=== PATIENT | male | born 1950 | race Caucasian/White ===

== ENCOUNTER → 2018-06-28 09:36 | Outpatient (CLI) | payer MEDICARE, SELFPAY ==
[2018-06-28 12:12] LABS: Absolute Lymphocyte Count 0.98 X10^3/ul (0.83-4.51); Absolute Neutrophil Count 6.4 X10^3/uL (2.0-7.7); Basophil# 0.04 X10^3/uL; Basophil% 0.5 % (0-1); Eosinophil# 0.07 X10^3/uL; Eosinophils% 0.9 % (0-5); Hematocrit 45.6 % (40-54); Hemoglobin 15.8 g/dl (13.0-16.5); Lymphocyte # 0.98 X10^3/ul (4.0); Lymphocyte % 12.2 % (19-41); Mean Corp Hgb Conc 34.6 g/gl (32-36); Mean Corpuscular Hgb 32.2 pg (27.0-32.0); Mean Corpuscular Volume 93.1 fL (80-94); Mean Platelet Vol. 10.5 fl (6.2-12.0); Monocyte# 0.48 X10^3/uL; Neutrophil # 6.42 X10^3/uL (2.7-7.7); Neutrophil % 80.2 % (47-70); Platelet Count 241 K/mm3 (150-450); RBC Distribution Width CV 12.6 % (11.6-14.6); RBC Distribution Width SD 42.2 fl (35.1-43.9)
[2018-06-28 12:23] LABS: POSITIVE COUNT NO; POSITIVE DIFFERENTIAL NO; POSITIVE MORPHOLOGY NO
[2018-06-28 12:40] LABS: Anion Gap 8 (5-15); BUN 20 mg/dL (7-18); BUN/Creat Ratio 20.2 RATIO (10-20); Calcium,Total 9.4 mg/dL (8.5-10.1); Chloride 106 mmol/L (98-107); Creatinine, Serum 0.99 mg/dL (0.70-1.30); EST Glomerular Filtration Rate 79 mL/min (>60); Est Glom Filt Rate - Afr Amer 96 mL/min (>60); Glucose 94 mg/dL (74-106); Potassium 4.1 mmol/L (3.5-5.1); Sodium Level 140 mmol/L (136-145); Thyroid Stim Hormone (TSH) 1.49 uIU/mL (0.358-3.74)
--- OUTSIDE RECORDS SUMMARY | 2018-08-21 13:57 | XMS RPT_ITS ---
:1950 Author Organization OHIP Care Team Providers Name Role Phone JOVANI DE LA CRUZ Referring Unavailable JOVANI DE LA CRUZ Attending Unavailable JOVANI DE LA CRUZ Referring Unavailable Mina Justice Attending Unavailable Mina Justice Primary Care Unavailable PROBLEMS PROBLEMS DATE TYPE CONDITION / CODE ATTENDING STATUS SOURCE 06/28/2018 Unknown I10 - Essential Mina Justice Active [place] (primary) [facility] hypertension / Hospital I10(ICD-10) Repository 06/28/2018 Unknown E78.5 - Mina Justice Active [place] Hyperlipidemia, [facility] unspecified / Hospital E78.5(ICD-10) Repository 06/28/2018 Unknown E55.9 - Vitamin D Mina Justice Active [place] deficiency, [facility] unspecified / Hospital E55.9(ICD-10) Repository 09/02/2011 Active Malignant neoplasm NA Active [facility] of ascending colon [facility] / C18.2(ICD-10) Repository PROCEDURES PROCEDURES No Procedure Records FoundRESULTS RESULTS CBC W/DIFF, AUTOMATED Collected: 06/28/2018 Status: F Source: [place] 9:42 AM [facility] HOSPITAL REPOSITORY TYPE CODE TESTS RESULT OUT OF RANGE REFERENCE UNITS LAB L100.1000 4.4-11.0 K/mm3 Normal WBC 8.0 LAB L100.1200 4.6-6.2 M/mm3 Normal RBC 4.90 LAB L100.1300 13.0-16.5 g/dl Normal HGB 15.8 LAB L100.1400 40-54 % Normal HCT 45.6 LAB L100.1500 80-94 fL Normal MCV 93.1 LAB L100.1600 27.0-32.0 pg High MCH 32.2 LAB L100.1700 32-36 g/gl Normal MCHC 34.6 LAB L100.1810 11.6-14.6 % Normal RDW CV 12.6 LAB L100.1820 35.1-43.9 fl Normal RDW SD 42.2 LAB L100.1900 150-450 K/mm3 Normal PLT 241 LAB L100.2000 6.2-12.0 fl Normal MPV 10.5 LAB L100.2100 47-70 % High NEUT% 80.2 LAB L100.2200 19-41 % Low LY% 12.2 LAB L100.2300 0-10 % Normal MONO% 6.0 LAB L100.2400 0-5 % Normal EO% 0.9 LAB L100.2500 0-1 % Normal BASO% 0.5 LAB L100.2550 0.0-0.9 % Normal IM GRAN % 0.200 Result Comment: IG% - Immature Granulocytes (promyelocytes, myelocytes and metamyelocytes) > 1% indicates that a LEFT SHIFT is Present. LAB L100.2620 2.0-7.7 X10 3/uL Normal Absolute Neut 6.4 LAB L100.2720 0.83-4.51 X10 3/ul Normal Absolute Lymph 0.98 Performed By: #### L100.0100 #### [facility] [address] [place], [place], [address] VITAMIN D,25 HYDROXY Collected: 06/28/2018 Status: F Source: ERWIN 9:42 AM [facility] REPOSITORY TYPE CODE TESTS RESULT OUT OF RANGE REFERENCE UNITS LAB L506.1000 29.95-100.01 ng/mL Normal Vitamin D 57.0 25-OH Result Comment: Vitamin D 25(OH) Status Range Deficiency <20 ng/mL (50nmol/L) Insuffciency 20 - 30 ng/mL (50 - 75 nmol/L) Sufficiency 30 - 100 ng/mL (75 - 250 nmol/L) Toxicity >100 ng/mL (>250 nmol/L) Performed By: #### L506.1000 #### [facility] [address] [place], [address] BASIC METABOLIC Collected: 06/28/2018 Status: F Source: ERWIN PROFILE (BMP) 9:42 AM [facility] REPOSITORY TYPE CODE TESTS RESULT OUT OF RANGE REFERENCE UNITS LAB L501.0100 74-106 mg/dL Normal GLU 94 Result Comment: Please note revised GLUCOSE reference range effective 2017. LAB L501.1000 7-18 mg/dL High BUN 20 LAB L501.1100 0.70-1.30 mg/dL Normal CREAT,SERUM 0.99 Result Comment: The validity of the calculated GFR AND GFRAA in patients over 70 years has not been determined. Clinical correlation is essential. LAB L501.1110 >60 mL/min Normal EST GFR 79 Result Comment: Non- GFR Calc LAB L501.1115 >60 mL/min Normal EST GFR - AA 96 Result Comment: GFR Calc LAB L501.1300 10-20 RATIO High BUN/CRE 20.2 LAB L501.2200 8.5-10.1 mg/dL CA Normal 9.4 LAB L501.5300 136-145 mmol/L NA Normal 140 LAB L501.5600 3.5-5.1 mmol/L K Normal 4.1 LAB L501.5900 98-107 mmol/L CL Normal 106 LAB L501.6100 21.0-32.0 mmol/L Normal CO2 26.0 LAB L501.6200 5-15 Normal GAP 8 Performed By: #### L500.2500, L501.9520 #### [facility] [address] [place], [place], [id number] THYROID STIM HORMONE Collected: 06/28/2018 Status: F Source: [place] (TSH) 9:42 AM [facility] REPOSITORY TYPE CODE TESTS RESULT OUT OF RANGE REFERENCE UNITS LAB L501.9520 0.358-3.74 uIU/mL Normal TSH 1.49 Performed By: #### L500.2500, L501.9520 #### [facility] [address] [place], [place], [id number] PROGRESS Observed: 05/14/2018 Status: COMPLETED Source: [place] 11:42 AM [facility] REPOSITORY HNO ID: [id number] Author: Cindy Betancourt Cma Service: (none) Author Type: (none) Type: Progress Notes Filed: 05/14/2018 11:42 AM Note Text: Switched to Dr. Justice. Removed dr. Barajas as pcp. PROGRESS Observed: 05/11/2018 Status: COMPLETED Source: [place] 2:27 PM [facility] REPOSITORY HNO ID: [id number] Author: Cindy Betancourt [facility] Service: (none) Author Type: (none) Type: Progress Notes Filed: 05/14/2018 11:42 AM Note Text: Left message for patient to return call #[phone] PROGRESS Observed: 05/11/2018 Status: COMPLETED Source: [place] 2:25 PM [facility] REPOSITORY HNO ID: [id number] Author: Cindy Betancourt [facility] Service: (none) Author Type: (none) Type: Progress Notes Filed: 05/14/2018 11:42 AM Note Text: PHMA TEAMLET DOCUMENTATION Provider Action/FYI: PSR Action/FYI: R/s appointment ([employer] message read last time, but no appointment made) Lipid ordered Teamlet has identified patient by name and date of . Team: Dr. Karl Camara Older Mirta Myself ? Last Office Visit:Visit date not found ? Next Office Visit: Visit date not found ? Last BP/Labs: Blood Pressure: Last 3 Encounter BP Readings: Date: BP: 11/12/2017 146/65 06/01/2017 154/78[average[ 11/28/2016 168/86[ (from Extended Vitals)[ Lipids: Cholesterol, Total (mg/dL) Date Value 05/25/2017 217 02/01/2016 226 HDL Cholesterol (mg/dL) Date Value 05/25/2017 80 02/01/2016 86 LDL Cholesterol (mg/dL) Date Value 05/25/2017 121 02/01/2016 123 Triglyceride (mg/dL) Date Value 05/25/2017 78 02/01/2016 85 HGB A1C: Lab Results Component Value Date HBA1C 5.3 05/25/2017 TSH: TSH (uU/mL) Date Value 01/05/2015 1.710 06/02/2012 1.740 ) Care Gap: HTN - Last BP NOT under 140/90 Hyperlipidemia Plan: ? Confirm PCP / Status - active ? Type of appointment needed: Follow-up HTN next available with Provider pcp or woods warden ? Consultation Appointments: n/a Labs, HM and Immunization: Health Maintenance Due: BP CONTROLLED (<130/80) due on 1966 HEPATITIS C SCREENING due on 1992 INFLUENZA(1) due on 03/27/2018 COLORECTAL CANCER SCREENING,SEE MODIFIER due on 06/11/2018 iCndy Betancourt [facility] CNPTOUTREACH Observed: 05/11/2018 Status: COMPLETED Source: [place] 12:00 AM [facility] REPOSITORY Patient Outreach (INTMWS) TRISTON KELLY ([id number]) 1950 M Date Time Provider Department 05/11/18 CINDY BETANCOURT ([facility]) INTMWS During your visit today, we recorded the following information about you: Cindy Betancourt Cma 05/14/2018 11:42 AM Signed PHMA TEAMLET DOCUMENTATION Provider Action/FYI: PSR Action/FYI: R/s appointment ([employer] message read last time, but no appointment made) Lipid ordered Teamlet has identified patient by name and date of . Team: Dr. Karl Camara Older Mirta Myself ? Last Office Visit:Visit date not found ? Next Office Visit: Visit date not found ? Last BP/Labs: Blood Pressure: Last 3 Encounter BP Readings: Date: BP: 11/12/2017 146/65 06/01/2017 154/78[average[ 11/28/2016 168/86[ (from Extended Vitals)[ Lipids: Cholesterol, Total (mg/dL) Date Value 05/25/2017 217 02/01/2016 226 HDL Cholesterol (mg/dL) Date Value 05/25/2017 80 02/01/2016 86 LDL Cholesterol (mg/dL) Date Value 05/25/2017 121 02/01/2016 123 Triglyceride (mg/dL) Date Value 05/25/2017 78 02/01/2016 85 HGB A1C: Lab Results Component Value Date HBA1C 5.3 05/25/2017 TSH: TSH (uU/mL) Date Value 01/05/2015 1.710 06/02/2012 1.740 ) Care Gap: HTN - Last BP NOT under 140/90 Hyperlipidemia Plan: ? Confirm PCP / Status - active ? Type of appointment needed: Follow-up HTN next available with Provider pcp or woods warden ? Consultation Appointments: n/a Labs, HM and Immunization: Health Maintenance Due: BP CONTROLLED (<130/80) due on 1966 HEPATITIS C SCREENING due on 1992 INFLUENZA(1) due on 03/27/2018 COLORECTAL CANCER SCREENING,SEE MODIFIER due on 06/11/2018 Cindy Resighini [facility] Cindy Resighini [facility] [address] [facility] 05/14/2018 11:42 AM Signed Left message for patient to return call #[phone] Cindyloki Betancourt [facility] 05/14/2018 11:42 AM Signed Switched to Dr. Justice. Removed dr. Barajas as pcp. Allergies As of Date: 05/11/2018 Noted Allergy Reaction LATEX 12/05/2009 Date Reviewed: 11/12/2017 Reviewed by: Emily Ervin - Fully Assessed Reason for Visit: PHMA/Care Gap Outreach [[id number]] Prescriptions as of 05/11/2018 Sig: PEG 3350 240 GRAM-ELECTROLYTE* Take 4,000 mL by mouth one ti* AMLODIPINE 10 MG TABLET Take 1 tablet by mouth once d* PRAVASTATIN 20 MG TABLET Take 1 tablet by mouth daily * POTASSIUM GLUCONATE 595 MG (9* Take 595 mg by mouth once olu* CHOLECALCIFEROL (VITAMIN D3) * Take 2 capsules by mouth once* MAGNESIUM 250 MG TABLET Take 250 mg by mouth once olu* Problem List As Of Date 05/11/2018 Noted Resolved Chest pain [R07.9] INVALID FOR*11/12/2016 More... More... 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 Neutropenia, drug-induced (HCC) [D70.2] INVALID FOR*11/12/2016 Vitamin d deficiency [E55.9] INVALID FOR* Contusion of left ankle [S90.02XA] INVALID FOR*11/12/2016 Sprain of deltoid (ligament), ankle [S93.429A] INVALID FOR*11/12/2016 Other sprain of foot [S93.699A] INVALID FOR*11/12/2016 Tibialis tendinitis [M76.829] INVALID FOR*11/12/2016 Spring ligament tear [S93.699A] INVALID FOR*11/12/2016 H/O colon cancer, stage III [Z85.038] INVALID FOR*05/01/2015 Counseling and coordination of care [Z71.89] INVALID FOR*03/19/2015 Priority: A More... 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*INVALID FOR* Encounter Status:Closed by CINDY BETANCOURT CMA on 05/14/18 PROGRESS Observed: 05/05/2018 Status: COMPLETED Source: [place] 10:02 AM [facility] REPOSITORY HNO ID: [id number] Author: Cindy Betancourt Cma Service: (none) Author Type: (none) Type: Progress Notes Filed: 05/05/2018 10:02 AM Note Text: Mychart message read PROGRESS Observed: 04/27/2018 Status: COMPLETED Source: [place] 8:49 AM [facility] REPOSITORY HNO ID: [id number] Author: Cindy Betancourt Cma Service: (none) Author Type: (none) Type: Progress Notes Filed: 05/05/2018 10:02 AM Note Text: MyChart message sent. PROGRESS Observed: 04/27/2018 Status: COMPLETED Source: [place] 8:43 AM [facility] REPOSITORY HNO ID: [id number] Author: Cindy Betancourt Cma Service: (none) Author Type: (none) Type: Progress Notes Filed: 05/05/2018 10:02 AM Note Text: PHMA TEAMLET DOCUMENTATION Provider Action/FYI: Please file labs PSR Action/FYI: R/s follow up appointment with PCP Teamlet has identified patient by name and date of . Team: Dr. Karl Camara Older Mirta White ? Last Office Visit:Visit date not found ? Next Office Visit: Visit date not found ? Last BP/Labs: Blood Pressure: Last 3 Encounter BP Readings: Date: BP: 11/12/2017 146/65 06/01/2017 154/78[average[ 11/28/2016 168/86[ (from Extended Vitals)[ Lipids: Cholesterol, Total (mg/dL) Date Value 05/25/2017 217 02/01/2016 226 HDL Cholesterol (mg/dL) Date Value 05/25/2017 80 02/01/2016 86 LDL Cholesterol (mg/dL) Date Value 05/25/2017 121 02/01/2016 123 Triglyceride (mg/dL) Date Value 05/25/2017 78 02/01/2016 85 HGB A1C: Lab Results Component Value Date HBA1C 5.3 05/25/2017 TSH: TSH (uU/mL) Date Value 01/05/2015 1.710 06/02/2012 1.740 ) Care Gap: HTN - Last BP NOT under 140/90 Hyperlipidemia Plan: ? Confirm PCP / Status - active ? Type of appointment needed: Follow-up next available with Provider pcp or woods warden ? Consultation Appointments: n/a Labs, HM and Immunization: Health Maintenance Due: BP CONTROLLED (<130/80) due on 1966 HEPATITIS C SCREENING due on 1992 INFLUENZA(1) due on 03/27/2018 Cindy Betancourt [employer] CNPTOUTREACH Observed: 04/27/2018 Status: COMPLETED Source: [place] 12:00 AM [facility] REPOSITORY Patient Outreach (INTMWS) TRISTON KELLY ([id number]) 1950 M Date Time Provider Department 04/27/18 CINDY BETANCOURT) INTMHUMERA During your visit today, we recorded the following information about you: Cindy Betancourt Cma 05/05/2018 10:02 AM Signed PHMA TEAMLET DOCUMENTATION Provider Action/FYI: Please file labs PSR Action/FYI: R/s follow up appointment with PCP Teamlet has identified patient by name and date of . Team: Dr. Karl Camara Older Mirta White ? Last Office Visit:Visit date not found ? Next Office Visit: Visit date not found ? Last BP/Labs: Blood Pressure: Last 3 Encounter BP Readings: Date: BP: 11/12/2017 146/65 06/01/2017 154/78[average[ 11/28/2016 168/86[ (from Extended Vitals)[ Lipids: Cholesterol, Total (mg/dL) Date Value 05/25/2017 217 02/01/2016 226 HDL Cholesterol (mg/dL) Date Value 05/25/2017 80 02/01/2016 86 LDL Cholesterol (mg/dL) Date Value 05/25/2017 121 02/01/2016 123 Triglyceride (mg/dL) Date Value 05/25/2017 78 02/01/2016 85 HGB A1C: Lab Results Component Value Date HBA1C 5.3 05/25/2017 TSH: TSH (uU/mL) Date Value 01/05/2015 1.710 06/02/2012 1.740 ) Care Gap: HTN - Last BP NOT under 140/90 Hyperlipidemia Plan: ? Confirm PCP / Status - active ? Type of appointment needed: Follow-up next available with Provider pcp or woods warden ? Consultation Appointments: n/a Labs, HM and Immunization: Health Maintenance Due: BP CONTROLLED (<130/80) due on 1966 HEPATITIS C SCREENING due on 1992 INFLUENZA(1) due on 03/27/2018 Cindy Betancourt Cma 05/05/2018 10:02 AM Signed MyChart message sent. Cindy Betancourt Cma 05/05/2018 10:02 AM Signed [employer] message read Allergies As of Date: 04/27/2018 Noted Allergy Reaction LATEX 12/05/2009 Date Reviewed: 11/12/2017 Reviewed by: Emily Ervin - Fully Assessed Reason for Visit: PHMA/Care Gap Outreach [[id number]] Primary Visit Diagnosis:Mixed hyperlipidemia [E78.2] Order(s):LIPID PANEL BASIC [SQLIPB] Order #: [id number] FUTURE Prescriptions as of 04/27/2018 Sig: AMLODIPINE 10 MG TABLET Take 1 tablet by mouth once d* PRAVASTATIN 20 MG TABLET Take 1 tablet by mouth daily * POTASSIUM GLUCONATE 595 MG (9* Take 595 mg by mouth once olu* CHOLECALCIFEROL (VITAMIN D3) * Take 2 capsules by mouth once* MAGNESIUM 250 MG TABLET Take 250 mg by mouth once olu* Problem List As Of Date 04/27/2018 Noted Resolved Chest pain [R07.9] INVALID FOR*11/12/2016 More... More... 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 Neutropenia, drug-induced (HCC) [D70.2] INVALID FOR*11/12/2016 Vitamin d deficiency [E55.9] INVALID FOR* Contusion of left ankle [S90.02XA] INVALID FOR*11/12/2016 Sprain of deltoid (ligament), ankle [S93.429A] INVALID FOR*11/12/2016 Other sprain of foot [S93.699A] INVALID FOR*11/12/2016 Tibialis tendinitis [M76.829] INVALID FOR*11/12/2016 Spring ligament tear [S93.699A] INVALID FOR*11/12/2016 H/O colon cancer, stage III [Z85.038] INVALID FOR*05/01/2015 Counseling and coordination of care [Z71.89] INVALID FOR*03/19/2015 Priority: A More... 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 HPI: The patient is a 67 yo male who underwent his initial screening colonoscopy 06/26/2011 at the prompting of Dr. Justice. Findings--A benign appearing sessile polyp was found in the rectum. The polyp was small in size. The polyp was removed with a hot snare. (#2) Resection was complete, and retrieval was complete. A carpet-like, sessile polypoid lesion was found in the proximal ascending colon. The polyp was medium in size. This has the appearance of a spreading TVA. This polyp cannot be safely removed endoscopically. Pathology: Colon, proximal ascending, polypoid lesion, biopsy (A) - Fragments of tubular adenoma. 2. Rectum, polypectomy (B) - Tubular adenoma. Was referred for surgical resection. Had CT A/P 08/07/11: Abdomen: Liver: There is a subcentimeter hypodense lesion in the lateral segment of the left hepatic lobe (image 28), which is too small to characterize. Spleen: No focal lesions. Pancreas and biliary sytem: There is no pancreatic or biliary duct dilatation, or radiopaque gallstones. No focal pancreatic lesions. Adrenals: Normal Kidneys: Both kidneys enhance symmetrically. There is no renal mass, nephrolithiasis or or hydronephrosis. Mesentery/Peritoneum: There is no lymphadenopathy or ascites. Retroperitoneum: There is no retroperitoneal lymphadenopathy. Bowel: Unremarkable. Other: None. Pelvis: Lymph Nodes: There is no pelvic lymphadenopathy. Other: The prostate is enlarged and measures 4.4 x 4.0 cm transversely. There is no pelvic mass or fluid collection Bones and lungs: No acute findings. IMPRESSION: NO MALIGNANT PROCESS IDENTIFIED IN THE ABDOMEN AND PELVIS. Underwent laparoscopic right hemicolectomy and creation of ileocolostomy ([id number] 75-mm stapled) on 08/18/11. Pathology: Right colon, resection - Moderately differentiated invasive adenocarcinoma arising in a tubular adenoma. - Metastatic adenocarcinoma involves 3 of 14 lymph nodes (3/14). - See comment for staging parameters. COMMENT COLON AND RECTUM: Resection, Including Transanal Disk Excision of Rectal Neoplasms Specimen Terminal ileum Appendix Ascending colon Tumor Site Right (ascending) colon Tumor Size: Greatest dimension: Approximately 1 cm (microscopic measurement of invasive component) Macroscopic Tumor Perforation: Not identified Macroscopic Intactness of Mesorectum: Not applicable Histologic Type: Adenocarcinoma Histologic Grade: Low-grade (well-differentiated to moderately differentiated) Microscopic Tumor Extension: Tumor invades through the muscularis propria into the subserosal adipose tissue but does not extend to the serosal surface MARGINS Proximal Margin: Uninvolved by invasive carcinoma Distal Margin: Uninvolved by invasive carcinoma If all margins uninvolved by invasive carcinoma: Distance of invasive carcinoma from closest margin: 12 cm Specify margin: Proximal margin Perineural Invasion: Not identified Type of Polyp in Which Invasive Carcinoma Arose: Tubular adenoma Pathologic Staging (pTNM) Primary Tumor (pT) pT3: Tumor invades through the muscularis propria into pericolorectal tissues Regional Lymph Nodes (pN) pN1b: Metastasis in 2 to 3 regional lymph nodes Number of lymph nodes examined: specify number 14 Number of lymph nodes involved: 3 Distant Metastasis (pM) Not applicable Ancillary Studies: Microsatellite instability studies will be performed and reported in an addendum. Mutational analysis BRAF V600E mutational analysis: Not applicable KRAS mutational analysis Can be performed upon clinical request Additional Pathologic Findings: Small bowel with focal ulcer but no neoplasm identified. Appendix with no neoplasm identified. COMMENT: Dr. Sharon Batres consulted with regards to the lymph node count. This report is being amended to reflect a change in the lymph node count. The change is as follows: Instead of metastatic adenocarcinoma involving 2 of 12 lymph nodes (2/12), it now reads metastatic adenocarcinoma involves 3 of 14 lymph nodes (3/14). The pathological N stage is unchanged (pN1b). Dr. Mina Ortiz was notified of this change by e-mail on 08/27/2011. Completed adjuvant FOLFOX x11 01/1612 and 1 cycle infusional 5-FU 02/23/12. Had colonoscopy 07/07--normal mucosa. Underwent colonoscopy 07/14/13: Non-bleeding internal hemorrhoids were found, and they were small. A few diverticula were found in the descending colon. There was evidence of a prior tnrb-ri-ybrb ileo-colonic anastomosis in the proximal transverse colon. This was patent. This was characterized by healthy appearing mucosa. This was traversed. The exam was otherwise normal throughout the examined colon. There is no endoscopic evidence of erythema, polyps or angiodysplasia in the entire colon. Impression: - Non-bleeding internal hemorrhoids. - Diverticulosis in the descending colon. - Patent mtoh-lw-yjfm ileo-colonic anastomosis. Recommendation: - Collect Hemoccults on three spontaneously passed stools annually. - Repeat colonoscopy in 2 years for surveillance. Presents for ongoing oncologic management. Interim history: He has no GI complaints. He's noticed that at night when he lies flat in bed he gets a little numbness and stinging down the lateral left thigh. He's been doing the treadmill a lot more this winter since he has not been able to get outside and run. He is not doing any particular stretching exercises. He has no back pain. His appetite is normal. He's purposely been trying to lose weight. He's had no reflux, nausea or vomiting. No abdominal bloating or distention. Bowels are working regularly. No symptoms of GI bleeding. PMH, medications and allergies as below personally reviewed by me today. Any changes documented in appropriate section. ROS: Constitutional: Denies episodes of fever and night sweats. Not significantly fatigued. Normal appetite. Neuro: Denies NELSON, vertigo, dizziness and imbalance. See above regarding radicular symptoms left thigh. HEENT: No recent change in voice, vision or hearing. Resp: Denies cough, wheeze and hemoptysis. Denies shortness of breath at rest. Denies HERRMANN. CVS: Denies exertional chest pain, PND, orthopnea and LE edema. GI: Denies dysgeusia. Denies symptoms of stomatitis. Denies dysphagia and odynophagia. : Denies dysuria or gross hematuria. No symptoms of bladder outlet obstruction. Endo: Denies hot flashes. Denies polyuria and polydipsia. Denies heat and cold intolerance. Musculoskeletal: Denies bone, back, joint and muscular pain. Derm: Denies rash. Denies jaundice and diffuse pruritis. Heme: Denies unusual bleeding and unexplained bruising. Psych: Normal mood. PHYSICAL EXAM: Vitals: Blood pressure 146/65, pulse 74, temperature 36.5 ?C (97.7 ?F), temperature source Oral, weight 93.9 kg (207 lb). Well-appearing and in no acute distress. EYES: Sclerae are anicteric bilaterally. NECK: Supple. LYMPHATIC: There is no palpable cervical, supraclavicular or axillary adenopathy. RESPIRATORY: Inspiratory breath sounds are of normal intensity in all teague. CARDIOVASCULAR: Rhythm is regular. Normal intensity S1/S2. There is no gallop or murmur. ABDOMEN: The abdomen is nondistended. There is no organomegaly. No tenderness. Extremities: Free of edema. SKIN: No jaundice or rash. No petechiae. NEUROLOGIC: clam sorter II-XII are grossly intact. No focal motor weakness. MS: No paralumbar tenderness or mass. ASSESSMENT/PLAN: 1) pT3 pN1b MX well differentiated adenocarcinoma of the ascending colon. 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 -Patient received and tolerated adjuvant chemotherapy very well. -He is now over 6 years out from his surgery. Previous CT scans have revealed LASHAWN. -Discussed that he will be due for colonoscopy in May of this year. -Per NCCI guidelines, no further routine medical oncologic follow up or CEA measurements required. 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 -He will continue under the care of his PCP for routine health maintenance and management of hypertension. Jovani De La Cruz DO CNOVSP Observed: 11/12/2017 Status: COMPLETED Source: [facility] 9:50 AM [facility] RE[facility] Visit (SP) Office ([place]) PONCHOTRISTON BORRERO ([id number]) 1950 M Date Time Provider Department 11/12/17 9:50 AM JOVANI DE LA CRUZ During your visit today, we recorded the following information about you: Temperature Pulse Blood pressure Weight 97.7 degrees 74/minute 146/65 93.9 kg Jovani De La Cruz DO 11/12/2017 10:22 AM Signed Diagnosis: 1) Stage III colon cancer. HPI: The patient is a 67 yo male who underwent his initial screening colonoscopy 06/26/2011 at the prompting of Dr. Justice. Findings--ANDquot;A benign appearing sessile polyp was found in the rectum. The polyp was small in size. The polyp was removed with a hot snare. (#2) Resection was complete, and retrieval was complete. A carpet-like, sessile polypoid lesion was found in the proximal ascending colon. The polyp was medium in size. This has the appearance of a ANDquot;spreading TVAANDquot;. This polyp cannot be safely removed endoscopically.ANDquot; Pathology: Colon, proximal ascending, polypoid lesion, biopsy (A) - Fragments of tubular adenoma. 2. Rectum, polypectomy (B) - Tubular adenoma. Was referred for surgical resection. Had CT A/P 08/07/11: Abdomen: Liver: There is a subcentimeter hypodense lesion in the lateral segment of the left hepatic lobe (image 28), which is too small to characterize. Spleen: No focal lesions. Pancreas and biliary sytem: There is no pancreatic or biliary duct dilatation, or radiopaque gallstones. No focal pancreatic lesions. Adrenals: Normal Kidneys: Both kidneys enhance symmetrically. There is no renal mass, nephrolithiasis or or hydronephrosis. Mesentery/Peritoneum: There is no lymphadenopathy or ascites. Retroperitoneum: There is no retroperitoneal lymphadenopathy. Bowel: Unremarkable. Other: None. Pelvis: Lymph Nodes: There is no pelvic lymphadenopathy. Other: The prostate is enlarged and measures 4.4 x 4.0 cm transversely. There is no pelvic mass or fluid collection Bones and lungs: No acute findings. IMPRESSION: NO MALIGNANT PROCESS IDENTIFIED IN THE ABDOMEN AND PELVIS. Underwent laparoscopic right hemicolectomy and creation of ileocolostomy ([id number] 75-mm stapled) on 08/18/11. Pathology: Right colon, resection - Moderately differentiated invasive adenocarcinoma arising in a tubular adenoma. - Metastatic adenocarcinoma involves 3 of 14 lymph nodes (3/14). - See comment for staging parameters. COMMENT COLON AND RECTUM: Resection, Including Transanal Disk Excision of Rectal Neoplasms Specimen Terminal ileum Appendix Ascending colon Tumor Site Right (ascending) colon Tumor Size: Greatest dimension: Approximately 1 cm (microscopic measurement of invasive component) Macroscopic Tumor Perforation: Not identified Macroscopic Intactness of Mesorectum: Not applicable Histologic Type: Adenocarcinoma Histologic Grade: Low-grade (well-differentiated to moderately differentiated) Microscopic Tumor Extension: Tumor invades through the muscularis propria into the subserosal adipose tissue but does not extend to the serosal surface MARGINS Proximal Margin: Uninvolved by invasive carcinoma Distal Margin: Uninvolved by invasive carcinoma If all margins uninvolved by invasive carcinoma: Distance of invasive carcinoma from closest margin: 12 cm Specify margin: Proximal margin Perineural Invasion: Not identified Type of Polyp in Which Invasive Carcinoma Arose: Tubular adenoma Pathologic Staging (pTNM) Primary Tumor (pT) pT3: Tumor invades through the muscularis propria into pericolorectal tissues Regional Lymph Nodes (pN) pN1b: Metastasis in 2 to 3 regional lymph nodes Number of lymph nodes examined: specify number 14 Number of lymph nodes involved: 3 Distant Metastasis (pM) Not applicable Ancillary Studies: Microsatellite instability studies will be performed and reported in an addendum. Mutational analysis BRAF [id number] mutational analysis: Not applicable KRAS mutational analysis Can be performed upon clinical request Additional Pathologic Findings: Small bowel with focal ulcer but no neoplasm identified. Appendix with no neoplasm identified. COMMENT: Dr. Sharon Batres consulted with regards to the lymph node count. This report is being amended to reflect a change in the lymph node count. The change is as follows: Instead of metastatic adenocarcinoma involving 2 of 12 lymph nodes (2/12), it now reads metastatic adenocarcinoma involves 3 of 14 lymph nodes (3/14). The pathological N stage is unchanged (pN1b). Dr. Mina Ortiz was notified of this change by e-mail on 08/27/2011. Completed adjuvant FOLFOX x11 01/1612 and 1 cycle infusional 5-FU 02/23/12. Had colonoscopy 07/07--normal mucosa. Underwent colonoscopy 07/14/13: Non-bleeding internal hemorrhoids were found, and they were small. A few diverticula were found in the descending colon. There was evidence of a prior [id number] ileo-colonic anastomosis in the proximal transverse colon. This was patent. This was characterized by healthy appearing mucosa. This was traversed. The exam was otherwise normal throughout the examined colon. There is no endoscopic evidence of erythema, polyps or angiodysplasia in the entire colon. Impression: - Non-bleeding internal hemorrhoids. - Diverticulosis in the descending colon. - Patent [id number] ileo-colonic anastomosis. Recommendation: - Collect Hemoccults on three spontaneously passed stools annually. - Repeat colonoscopy in 2 years for surveillance. Presents for ongoing oncologic management. Interim history: He has no GI complaints. He's noticed that at night when he lies flat in bed he gets a little numbness and stinging down the lateral left thigh. He's been doing the treadmill a lot more this winter since he has not been able to get outside and run. He is not doing any particular stretching exercises. He has no back pain. His appetite is normal. He's purposely been trying to lose weight. He's had no reflux, nausea or vomiting. No abdominal bloating or distention. Bowels are working regularly. No symptoms of GI bleeding. PMH, medications and allergies as below personally reviewed by me today. Any changes documented in appropriate section. ROS: Constitutional: Denies episodes of fever and night sweats. Not significantly fatigued. Normal appetite. Neuro: Denies NELSON, vertigo, dizziness and imbalance. See above regarding radicular symptoms left thigh. HEENT: No recent change in voice, vision or hearing. Resp: Denies cough, wheeze and hemoptysis. Denies shortness of breath at rest. Denies HERRMANN. CVS: Denies exertional chest pain, PND, orthopnea and LE edema. GI: Denies dysgeusia. Denies symptoms of stomatitis. Denies dysphagia and odynophagia. : Denies dysuria or gross hematuria. No symptoms of bladder outlet obstruction. Endo: Denies hot flashes. Denies polyuria and polydipsia. Denies heat and cold intolerance. Musculoskeletal: Denies bone, back, joint and muscular pain. Derm: Denies rash. Denies jaundice and diffuse pruritis. Heme: Denies unusual bleeding and unexplained bruising. Psych: Normal mood. PHYSICAL EXAM: Vitals: Blood pressure 146/65, pulse 74, temperature 36.5 ?C (97.7 ?F), temperature source Oral, weight 93.9 kg (207 lb). Well-appearing and in no acute distress. EYES: Sclerae are anicteric bilaterally. NECK: Supple. LYMPHATIC: There is no palpable cervical, supraclavicular or axillary adenopathy. RESPIRATORY: Inspiratory breath sounds are of normal intensity in all teague. CARDIOVASCULAR: Rhythm is regular. Normal intensity S1/S2. There is no gallop or murmur. ABDOMEN: The abdomen is nondistended. There is no organomegaly. No tenderness. Extremities: Free of edema. SKIN: No jaundice or rash. No petechiae. NEUROLOGIC: clam sorter II-XII are grossly intact. No focal motor weakness. MS: No paralumbar tenderness or mass. ASSESSMENT/PLAN: 1) pT3 pN1b MX well differentiated adenocarcinoma of the ascending colon. 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 -Patient received and tolerated adjuvant chemotherapy very well. -He is now over 6 years out from his surgery. Previous CT scans have revealed LASHAWN. -Discussed that he will be due for colonoscopy in May of this year. -Per NCCI guidelines, no further routine medical oncologic follow up or CEA measurements required. 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 -He will continue under the care of his PCP for routine health maintenance and management of hypertension. Jovani De La Cruz DO Referring Provider: JOVANI DE LA CRUZ [[id number]] Allergies As of Date: 11/12/2017 Noted Allergy Reaction LATEX 12/05/2009 Date Reviewed: 11/12/2017 Reviewed by: Emily Ervin - Fully Assessed Reason for Visit: Established Patient [175] Primary Visit Diagnosis:Cancer of ascending colon (HCC) [C18.2] Other Visit Diagnosis:Malignant neoplasm metastatic to intra- abdominal lymph node (HCC) [C77.2] Follow-up and Disposition History Recorded Prescriptions as of 11/12/2017 Sig: AMLODIPINE 10 MG TABLET Take 1 tablet by mouth once d* PRAVASTATIN 20 MG TABLET Take 1 tablet by mouth daily * POTASSIUM GLUCONATE 595 MG (9* Take 595 mg by mouth once olu* CHOLECALCIFEROL (VITAMIN D3) * Take 2 capsules by mouth once* MAGNESIUM 250 MG TABLET Take 250 mg by mouth once olu* Problem List As Of Date 11/12/2017 Noted Resolved Chest pain [R07.9] INVALID FOR*11/12/2016 More... More... 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 Neutropenia, drug-induced (HCC) [D70.2] INVALID FOR*11/12/2016 Vitamin d deficiency [E55.9] INVALID FOR* Contusion of left ankle [S90.02XA] INVALID FOR*11/12/2016 Sprain of deltoid (ligament), ankle [S93.429A] INVALID FOR*11/12/2016 Other sprain of foot [S93.699A] INVALID FOR*11/12/2016 Tibialis tendinitis [M76.829] INVALID FOR*11/12/2016 Spring ligament tear [S93.699A] INVALID FOR*11/12/2016 H/O colon cancer, stage III [Z85.038] INVALID FOR*05/01/2015 Counseling and coordination of care [Z71.89] INVALID FOR*03/19/2015 Priority: A More... 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*INVALID FOR* Encounter Status:Closed by JOVANI DE LA CRUZ DO on 11/12/17 ERWIN ABS GR + CBC Collected: 11/05/2017 Status: F Source: [place] 8:05 AM [facility] REPOSITORY TYPE CODE TESTS RESULT OUT OF REFERENCE UNITS RANGE LAB WWBC 3.70-11.00 k/uL [place] WBC 5.70 LAB WRBC 4.20-6.00 m/uL [place] RBC 4.74 LAB WHGB 13.0-17.0 g/dL [place] Hemoglobin 15.0 LAB WHCT 39.0-51.0 % [place] Hematocrit 45.0 LAB WMCV 80.0-100.0 fL [place] MCV 94.9 LAB WMCH 26.0-34.0 pg [place] MCH 31.6 LAB WMCHC 30.5-36.0 g/dL [place] MCHC 33.3 LAB WRDW 11.5-15.0 % [place] RDW 13.2 LAB WPLT 150-400 k/uL [place] Platelet Cnt 205 LAB WMPV 9.0-12.7 fL [place] MPV 10.1 Result Comment: Test performed at: [address] [place] [address]. LAB ABGRAN 1.45-7.50 k/uL Absol Gran 4.28 Count COMP METABOLIC PANEL Collected: 11/05/2017 Status: F Source: [place] 8:05 AM [facility] REPOSITORY TYPE CODE TESTS RESULT OUT OF REFERENCE UNITS RANGE LAB TP 6.3-8.0 g/dL Protein, Total 7.4 LAB ALB 3.9-4.9 g/dL Albumin 4.6 LAB CA 8.5-10.2 mg/dL Calcium, Total 9.5 LAB TBIL 0.2-1.3 mg/dL Bilirubin, Total 0.6 LAB ALKP 36-108 U/L Alkaline Phosphatase 79 LAB AST 14-40 U/L AST 26 LAB GLU 74-99 mg/dL Glucose 87 Result Comment: The [place] Diabetes [employer] (ADA) provides guidance for cutoff values for fasting glucose and random glucose. The ADA defines fasting as no caloric intake for at least 8 hours. Fas ting plasma glucose results between 100 to 125 mg/dL indicate increased risk for diabetes (prediabetes). Fasting plasma glucose results greater than or equal to 126 mg/dL meet the criteria for diagnosis of diabetes. In the absence of unequivocal hyperglycemia, results should be confirmed by repeat testing. In a patient with classic symptoms of hyperglycemia or hyperglycemic crisis, random plasma glucose results greater than or equal to 200 mg/dL meet the criteria for diagnosis of diabetes. Reference: Standards of Medical Care in Diabetes 2016, [place] Diabetes Association. Diabetes Care. 2016.39(Suppl 1). LAB BUN 9-24 mg/dL BUN 23 LAB CRET 0.73-1.22 mg/dL Creatinine 1.06 LAB NA 136-144 mmol/L Sodium 140 LAB K 3.7-5.1 mmol/L Potassium 4.7 LAB CL 97-105 mmol/L Chloride 102 LAB CO2 22-30 mmol/L CO2 24 LAB AGAP 9-18 mmol/L Anion Gap 14 LAB ALT 10-54 U/L ALT 21 LAB GFRAA eGFR- Amer. >60 LAB GFRNAA . eGFR-All Other Races >60 Result Comment: eGFR (Estimated GFR) Units of measure: mL/min/1.73 meters squared eGFR is derived from the reexpressed MDRD Study equation using the following parameters: serum creatinine, age, gender and race. The creatinine assay has been calibrated to be traceable to IDMS. An eGFR <60 mL/min/1.73m2 for >3 months is consistent with chronic kidney disease. Refer to KDOQI guidelines for clinical interpretation. In patients with unstable renal function, e.g. those with acute kidney injury, the eGFR may not accurately reflect actual GFR. Performed By: #### CMP, CEA #### [facility] import2 [address] [place], [place] [address] CEA Collected: 11/05/2017 Status: F Source: [place] 8:05 AM [facility] REPOSITORY TYPE CODE TESTS RESULT OUT OF RANGE REFERENCE UNITS LAB CEA 0.0-2.9 ng/mL CEA 1.8 Result Comment: Test analyzed by the [employer] DxI method. Performed By: #### CMP, CEA #### [facility] [address] [place] [id number] ALLERGIES ALLERGIES DATE TYPE / CODE NAME / CODE REACTION SEVERITY SOURCE 12/05/2009 DRUG LATEX [facility] INGREDI/[address] [place] [address](SNOMED [address]) ENCOUNTERS ENCOUNTERS ADMIT/DISCHARGE ACCOUNT ADMITTING ENCOUNTER LOCATION SOURCE NUMBER CLASS 06/28/2018 [id number] Ambulatory [facility] ing:BFHLAB Repository 11/12/2017/11/14/19 [id number] Ambulatory [address] [place] Repository 11/05/2017/11/07/19 [id number] Ambulatory [address] Repository PAYERS PAYERS ENCOUNTER GUARANTOR PAYER SUBSCRIBER SOURCE 06/28/2018 Alistair Primary BUSHRA Hood [id number] Insurance:HUAN RIVERB[facility]: [id number] Rep[facility] [address]Maq: [phone]) Date:[phone] () [id number], [place] [id number]: 06/28/2018 Secondary NOT GIVENTERRI GaytanErwin Insurance:SELF PAY [facility] Number: Effective Repository Date:2018-06-28
== END ==
PROVIDERS: Family Provider Family Medicine; PCP Family Medicine; Visit Provider Family Medicine
DX: I10 Essential (primary) hypertension (principal); E78.5 Hyperlipidemia, unspecified; E55.9 Vitamin D deficiency, unspecified
CPT/HCPCS: 36415; 80048; 82306; 84443; 85025

== ENCOUNTER → 2018-12-14 09:15 | Outpatient (CLI) | payer MEDICARE, OTHER, SELFPAY ==
[2018-12-14 12:22] LABS: Absolute Lymphocyte Count 0.98 X10^3/ul (0.83-4.51); Absolute Neutrophil Count 5.7 X10^3/uL (2.0-7.7); Basophil# 0.03 X10^3/uL; Basophil% 0.4 % (0-1); Eosinophil# 0.06 X10^3/uL; Eosinophils% 0.8 % (0-5); Hematocrit 45.2 % (40-54); Hemoglobin 15.2 g/dl (13.0-16.5); Lymphocyte # 0.98 X10^3/ul (4.0); Lymphocyte % 13.7 % (19-41); Mean Corp Hgb Conc 33.6 g/gl (32-36); Mean Corpuscular Hgb 31.1 pg (27.0-32.0); Mean Corpuscular Volume 92.4 fL (80-94); Monocyte# 0.35 X10^3/uL; Monocyte% 4.9 % (0-10); Neutrophil # 5.71 X10^3/uL (2.7-7.7); Neutrophil % 79.9 % (47-70); POSITIVE COUNT NO; POSITIVE DIFFERENTIAL NO; POSITIVE MORPHOLOGY NO; Platelet Count 213 K/mm3 (150-450); RBC Distribution Width CV 13.2 % (11.6-14.6); RBC Distribution Width SD 44.6 fl (35.1-43.9); Red Blood Count 4.89 M/mm3 (4.6-6.2); White Blood Count 7.2 K/mm3 (4.4-11.0)
[2018-12-14 12:58] LABS: Vitamin D,25 Hydroxy 69.6 ng/mL (29.95-100.01)
[2018-12-14 13:03] LABS: Hemoglobin A1c 5.1 % (4.2-6.3)
[2018-12-14 13:15] LABS: Anion Gap 10 (5-15); BUN 20 mg/dL (7-18); Calcium,Total 9.2 mg/dL (8.5-10.1); Chloride 106 mmol/L (98-107); EST Glomerular Filtration Rate 79 mL/min (>60); Est Glom Filt Rate - Afr Amer 95 mL/min (>60); Glucose 100 mg/dL (74-106); Potassium 4.2 mmol/L (3.5-5.1); Sodium Level 143 mmol/L (136-145); Thyroid Stim Hormone (TSH) 0.98 uIU/mL (0.358-3.74)
== END ==
PROVIDERS: Family Provider Family Medicine; PCP Family Medicine; Visit Provider Family Medicine
DX: E78.5 Hyperlipidemia, unspecified (principal); E55.9 Vitamin D deficiency, unspecified; I10 Essential (primary) hypertension; R73.01 Impaired fasting glucose
CPT/HCPCS: 36415; 80048; 82306; 83036; 84443; 85025

== ENCOUNTER → 2020-05-16 | Outpatient (CLI) | payer MEDICARE, OTHER, SELFPAY | END | disposition home or self-care (01) | LOC: LABSPEC 05-18 16:18 | PROVIDERS: PCP Family Medicine; Referring Provider Family Medicine; Visit Provider Family Medicine | DX: Z03.818 Encounter for observation for suspected exposure to other biological agents ruled out (principal) | CPT/HCPCS: 87635; C9803; U0003 ==

== ENCOUNTER → 2020-05-28 13:20 | Outpatient (CLI) | payer MEDICARE, OTHER, SELFPAY ==
[2020-05-28 15:48] LABS: Vitamin D,25 Hydroxy 53.1 ng/mL
[2020-05-28 16:03] LABS: Anion Gap 7 (5-15); BUN 18 mg/dL (7-18); Calcium,Total 9.2 mg/dL (8.5-10.1); Chloride 104 mmol/L (98-107); EST Glomerular Filtration Rate 78 mL/min (>60); Est Glom Filt Rate - Afr Amer 95 mL/min (>60); Glucose 86 mg/dL (74-106); Potassium 4.1 mmol/L (3.5-5.1); Sodium Level 139 mmol/L (136-145); Thyroid Stim Hormone (TSH) 1.18 uIU/mL (0.358-3.74)
== END ==
PROVIDERS: PCP Family Medicine; Visit Provider Family Medicine
DX: I10 Essential (primary) hypertension (principal); E78.5 Hyperlipidemia, unspecified; E55.9 Vitamin D deficiency, unspecified
CPT/HCPCS: 36415; 80048; 82306; 84443